=== PATIENT | female | born 1990 | race Caucasian/White ===

== ENCOUNTER 2016-10-11 09:39 | Emergency (ER) | payer OTHER ==
[~2016-10-11] VITALS: Ht 162.6 cm; Wt 88.9 kg
[2016-10-11 11:01] VITALS: BP 137/92
== END 2016-10-11 11:01 | disposition home or self-care (01) ==
LOC: ED 09:39
DX: R11.10 Vomiting, unspecified (principal); J45.909 Unspecified asthma, uncomplicated
CPT/HCPCS: Q0162

== ENCOUNTER 2017-06-27 18:47 | Emergency (ER) | payer OTHER ==
[~2017-06-27] VITALS: Ht 162.6 cm; Wt 90.9 kg
[2017-06-27 18:56] VITALS: Ht 162.6 cm; Wt 90.9 kg
[2017-06-28 00:15] VITALS: BP 139/97
== END 2017-06-28 00:15 | disposition home or self-care (01) ==
LOC: ED 18:47
DX: J06.9 Acute upper respiratory infection, unspecified (principal); R03.0 Elevated blood-pressure reading, without diagnosis of hypertension; J45.909 Unspecified asthma, uncomplicated; R11.10 Vomiting, unspecified

== ENCOUNTER 2017-11-24 19:36 | Emergency (ER) | payer OTHER ==
[~2017-11-24] VITALS: Ht 162.6 cm; Wt 92.8 kg
[2017-11-24 19:56] VITALS: Ht 162.6 cm; Wt 92.8 kg
[2017-11-24 20:36] LABS: BASOPHIL % 0.4 % (0-2); PLATELET COUNT 315 x10^3mcL (130-400); RED CELL DISTRIBUTION WIDTH 13.5 % (11.5-14.5)
[2017-11-24 21:09] LABS: microscopic required? YES; urine erythrocyte 3+ (NEGATIVE)
[2017-11-24 23:04] VITALS: BP 113/68
== END 2017-11-24 23:04 | disposition home or self-care (01) ==
LOC: ED 19:36
PROVIDERS: Emergency Medicine
DX: O46.91 Antepartum hemorrhage, unspecified, first trimester (principal); Z3A.08 8 weeks gestation of pregnancy
CPT/HCPCS: 36415

== ENCOUNTER 2017-12-19 05:06 | Emergency (ER) | payer OTHER ==
[~2017-12-19] VITALS: Ht 162.6 cm; Wt 91.3 kg
[2017-12-19 05:11] VITALS: Ht 162.6 cm; Wt 91.3 kg
[2017-12-19 06:50] LABS: UA SPECIFIC GRAVITY >=1.030 (1.005-1.035); microscopic required? YES; urine erythrocyte TRACE (NEGATIVE)
[2017-12-19 06:50] LABS: BASOPHIL % 0.4 % (0-2); PLATELET COUNT 316 x10^3mcL (130-400); RED CELL DISTRIBUTION WIDTH 13.7 % (11.5-14.5)
[2017-12-19 07:47] LABS: CALCIUM 9.2 mg/dL (8.5-10.1); CARBON DIOXIDE 24.6 mmol/L (21-32); CHLORIDE SERUM 103 mmol/L (98-107); CREATININE SERUM 0.5 mg/dL (0.6-1.0); GFR1 > 60 mL/min; GLUCOSE SERUM 105 mg/dL (74-106); POTASSIUM SERUM 3.6 mmol/L (3.5-5.1); SODIUM SERUM 141 mmol/L (136-145)
[2017-12-19 07:52] LABS: ALKALINE PHOSPHATASE 72 U/L (46-116); ALT/SGPT 20 U/L (14-59); AST/SGOT 20 U/L (15-37); TOTAL PROTEIN, SERUM 6.9 g/dL (6.4-8.2)
[2017-12-19 07:57] LABS: ALBUMIN 3.1 g/dL (3.4-5.0)
[2017-12-19 08:54] VITALS: BP 137/67
== END 2017-12-19 08:54 | disposition home or self-care (01) ==
LOC: ED 05:06
PROVIDERS: Emergency Medicine
DX: O21.9 Vomiting of pregnancy, unspecified (principal); J45.909 Unspecified asthma, uncomplicated
CPT/HCPCS: J2405; J7030

== ENCOUNTER 2018-02-04 12:43 | Emergency (ER) | payer OTHER ==
[~2018-02-04] VITALS: Ht 160 cm; Wt 89.8 kg
[2018-02-04 12:50] VITALS: Ht 160 cm; Wt 89.8 kg
[2018-02-04 13:47] VITALS: BP 128/68
== END 2018-02-04 13:47 | disposition home or self-care (01) ==
LOC: ED 12:43
DX: O26.892 Other specified pregnancy related conditions, second trimester (principal); M79.602 Pain in left arm; J45.909 Unspecified asthma, uncomplicated; Z3A.18 18 weeks gestation of pregnancy

== ENCOUNTER → 2019-11-22 | Outpatient (CLI) | payer OTHER ==
[2019-11-22 16:53] LABS: BASOPHIL % 0.4 % (0-2); PLATELET COUNT 349 x10^3mcL (130-400); RED CELL DISTRIBUTION WIDTH 13.6 % (11.5-14.5)
== END | disposition home or self-care (01) ==
LOC: LB 16:04
DX: Z01.818 Encounter for other preprocedural examination (principal)

== ENCOUNTER 2020-01-17 13:51 | Emergency (ER) | payer OTHER, SELFPAY ==
[~2020-01-17] VITALS: Ht 162.6 cm; Wt 95.3 kg
[2020-01-17 14:39] VITALS: BP 116/67; Ht 162.6 cm; Wt 95.3 kg
== END 2020-01-17 16:08 | disposition home or self-care (01) ==
LOC: ED 13:51
DX: U07.1 COVID-19 (principal); J45.909 Unspecified asthma, uncomplicated
CPT/HCPCS: Q0092; U0003-CS